=== PATIENT | male | born 1960 | race Two or more races ===

== ENCOUNTER 2020-09-10 21:00 | Emergency (ER) | payer OTHER ==
--- NOTE | 2020-09-11 00:27 | EDM.PDOC ---
ED HPI GENERAL MEDICAL PROBLEM - General Chief Complaint: Neurological Problem Stated Complaint: PATIENT COLLAPSED Time Seen by Provider: 09/10/20 22:32 Source of Information: Reports: Patient, Family History Limitations: Reports: No Limitations - History of Present Illness INITIAL COMMENTS - FREE TEXT/NARRATIVE: Regino Moses is a 60-year-old male who presents with his after having an episode of collapse and unresponsiveness associated with apnea. The patient and his were out for a walk in their neighborhood when the patient started to not feel well. He stopped and felt like he was going to have the aura of his migraine which causes paresthesias in his right fingertips right toes and face. The patient denied any nausea or vision changes except for the scintillating scotoma of migraine. He did not have any photophobia. He rested for a minute or 2 and started to feel better so he started to walk again and the states that he made a few steps and then again stopped putting his hands on his knees stating that he was not feeling well. Several minutes passed and he started to feel better and then started to walk again and this time he became unresponsive falling to the ground. The ran to get help but then decided to go back to them and on her return found him to be apneic so she started to give him [id number] respirations. After 2 or 3 breaths, the patient started to wake up. No chest compressions were performed. It is unclear whether he was pulseless at the time but likely did have a pulse. She called her son to bring the vehicle and they brought him to the emergency room for evaluation. Patient reportedly gets daily migraines. Although he had the aura today, he did not have any headache. He did have a migraine headache this morning. He typically treats his migraines with ibuprofen. He does have a past history significant for hypertension and a heart murmur. The family reports he had an echocardiogram back in 2003 but they are unsure what the echocardiogram showed. Denies any other past medical problems. 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 His works in town as a local dentist. - Related Data Allergies Allergy/AdvReac Type Severity Reaction Status Date / Time Penicillins Allergy Intermediate Rash Verified 09/10/20 22:31 Home Meds: Home Meds Ibuprofen [Motrin] 200 mg PO Q6H PRN 09/10/20 [History] Past Medical History HEENT History: Reports: Other (See Below) Other HEENT History: lasik eye surgery bilateral Neurological History: Reports: Migraines - Past Surgical History HEENT Surgical History: Reports: None, Tonsillectomy Social & Family History - Family History Family Medical History: No Pertinent Family History - Tobacco Use Tobacco Use Status *Q: Never Tobacco User - Caffeine Use Caffeine Use: Reports: None - Recreational Drug Use Recreational Drug Use: No ED ROS GENERAL - Review of Systems Review Of Systems: See Below Constitutional: Reports: No Symptoms HEENT: Reports: Vision Change (Scintillating scotoma associated with his migraine aura) Respiratory: Reports: Other (A period of apnea when he collapsed) Cardiovascular: Reports: Syncope (Without loss of bowel or bladder control), Other (Cardiac murmur history) Endocrine: Reports: No Symptoms GI/Abdominal: Reports: No Symptoms : Reports: No Symptoms Musculoskeletal: Reports: No Symptoms Skin: Reports: No Symptoms Neurological: Reports: Syncope Psychiatric: Reports: No Symptoms Hematologic/Lymphatic: Reports: No Symptoms Immunologic: Reports: No Symptoms - Physical Exam Exam: See Below Exam Limited By: No Limitations General Appearance: Alert, No Apparent Distress Eye Exam: Bilateral Eye: EOMI, PERRL Nose: Normal Inspection Throat/Mouth: Normal Inspection, Normal Oropharynx, Normal Voice, No Airway Compromise Head Exam: Atraumatic, Normocephalic Neck: Normal Inspection, Supple, Non-Tender, Full Range of Motion. No: Carotid Bruit (Unable to assess because of the grade 4/6 systolic ejection murmur heard in the right upper sternal border radiating to the carotids.), Lymphadenopathy (R), Lymphadenopathy (L) Respiratory/Chest: No Respiratory Distress, Lungs Clear, Normal Breath Sounds Cardiovascular: Regular Rate, Rhythm, Systolic Murmur (Grade 4/6 systolic ejection murmur), Other (Significant tardus and parvus with pulse in the radials bilaterally. Right radial artery is less intense than the left.) GI/Abdominal: Normal Bowel Sounds, Soft, Non-Tender Neuro Exam (Abbreviated): Alert, Oriented, CN II-XII Intact, Normal Cognition, No Motor/Sensory Deficits Back Exam: Normal Inspection, Full Range of Motion Extremities: Normal Inspection, Normal Range of Motion, Normal Capillary Refill Psychiatric: Normal Affect, Normal Mood Skin Exam: Warm, Dry, Intact, Normal Color #1 Interpretation EKG Date: 09/11/20 Time: 23:24 Rhythm: NSR Rate (Beats/Min): 53 [place]: Normal P-Wave: Present QRS: Normal ST-T: Normal QT: Normal Comparison: NA - No Prior EKG Course - Vital Signs Last Recorded V/S: Last Vital Signs Temp 36.2 C 09/10/20 22:43 Pulse 62 09/10/20 22:43 Resp 13 09/11/20 00:48 BP 121/66 09/11/20 00:48 Pulse Ox 97 09/11/20 00:48 - Orders/Labs/Meds Orders: Active Orders 24 hr Category Date Time Status EKG Documentation Completion [RC] ASDIRECTED Care 09/10/20 22:56 Active EKG 12 Lead [EK] Routine Ther 09/10/20 22:54 Ordered Labs: Laboratory Tests 09/10/20 09/10/20 Range/Units 22:54 23:00 WBC 10.2 (4.5-11.0) K/uL RBC 5.89 (4.30-5.90) M/uL Hgb 16.7 H (12.0-15.0) g/dL Hct 47.8 (40.0-54.0) % POC Hct 49 H (36-48) % MCV 81 (80-98) fL MCH 28 (27-31) pg MCHC 35 (32-36) % Plt Count 188 (150-400) K/uL Neut % (Auto) 78.5 H (36-66) % Lymph % (Auto) 14.3 L (24-44) % [place] % (Auto) 6.3 H (2-6) % Eos % (Auto) 0.8 L (2-4) % Baso % (Auto) 0.1 (0-1) % POC Capillary pH 7.45 H (7.31-7.41) POC Capillary pCO2 35.7 L (41.0-51.0) mmHg POC Capillary pO2 43 L* mmHg POC Capillary HCO3 24.6 (23.0-28.0) mmol/L POC Capill Base Excess 1 mmol/L POC Capillary O2 Sat 81 % POC Sodium 140 (140-148) mmol/L POC Potassium 3.9 (3.5-4.9) mmol/L POC Total CO2 26 (24-29) mmol/L POC WB Ioniz Calcium 1.15 (1.12-1.32) mmol/L POC Troponin I 0.08 (0.00-0.08) - Re-Assessments/Exams Free Text/Narrative Re-Assessment/Exam: 09/11/20 00:[address] patient underwent a CT of the head without contrast showing no acute abnormalities. Labs were obtained showing a CBC with a hemoglobin of 16.7, hematocrit of 47.8, leukocyte count of 10.2 with a normal differential, and platelet count of 188,000. His sodium was 140 with a potassium of 3.9. His troponin is negative. His venous blood gas shows a pH of 7.45, venous PCO2 of 35.7, venous PO2 of 43.7, and a bicarbonate of 24.6. Because the analyzer for chemistries is inoperable at this time we were unable to do other labs. I did perform a bedside echocardiogram for evaluation of the 4/6 systolic ejection murmur with syncope and apnea. The patient was placed in the left lateral decubitus position and we imaged the parasternal long axis, short axis, apical four-chamber and apical 2 chamber views. The patient has normal LV size and function with mild thickening of the LV wall measuring at 1.2 cm. The patient's LVID diastolic dimension is 5.35 cm. The patient's LVID systolic dimension is 2.7 cm. The left ventricular outflow tract diameter is 2.45 cm. The aortic valve excursion is 0.9 cm on M-mode. The mitral valve excursion is normal. Left ventricular ejection fraction is 65%. The right ventricular size and function are normal. Doppler assessment of the aortic valve shows a V-max of the LVOT at 0.95 m/s and the aortic V-max is 5.15 m/s giving a gradient of 86 mmHg across the aortic valve. The continuity equation was performed giving aortic valve area of 0.9 cm and corrected to an aortic valve area index based on the patient's BMI of 0.4 cm/m both indicating severe aortic stenosis. His EKG showed sinus bradycardia but no evidence for any ST elevation or d epression. No LVH by voltage criteria. The patient no longer has a primary care provider at [facility] so I discussed the case with Dr. Arceo from cardiology at [facility]. I did cl inical message her as well about trying to get the patient an appointment with cardiology in a timely fashion for a formal echocardiogram should they deem it necessary and further evaluation for probable aortic valve replacement. Given his history of traveling here from [facility], I am concerned about rheumatic valve disease as the cause for his aortic stenosis as the valve appears to be heavily calcified on the echocardiogram. Information was given to the family to be able to contact cardiology at [facility] to arrange a follow-up appointment. 09/11/20 01:53 at this time, the patient remained stable and is suitable for discharge home in satisfactory condition. Indications to return to the ED were discussed with the patient and family. All questions were answered. Departure - Departure Time of Disposition: 01:46 Disposition: Home, Self-Care 01 Clinical Impression: Syncope and collapse, Aortic stenosis, severe - Discharge Information Instructions: Aortic Valve Stenosis, Syncope Referrals: PCP,None [Primary Care Provider] - Forms: ED Department Discharge Care Plan Goals: I would like you to follow-up with cardiology at [facility]. To schedule an appointment with them please call [phone]. You may want to contact the [facility] clinic to get an appointment with Dr. Vaibhav Laguna who you have seen in the past. This should be as soon as possible so that he could arrange for either a teleconference with cardiology or a referral. Please return to the ED should you have any recurrence of symptoms including shortness of breath, chest pain, lightheadedness, or near syncope/syncope. Sepsis Event Note (ED) - Evaluation Sepsis Screening Result: No Definite Risk - Focused Exam Vital Signs: Vital Signs Temp Pulse Resp BP Pulse Ox 09/11/20 00:48 13 121/66 97 09/10/20 23:54 14 121/73 95 09/10/20 23:24 20 105/64 96 09/10/20 22:54 16 99/63 95 09/10/20 22:43 36.2 C 62 12 125/71 96 09/10/20 22:28 62 12 125/71 96 09/10/20 21:59 36.2 C 59 L 10 L 114/69 97 - Problem List & Annotations (1) Aortic stenosis, severe SNOMED Code(s): 007773636 Code(s): I35.0 - NONRHEUMATIC AORTIC (VALVE) STENOSIS Status: Acute Priority: High Current Visit: Yes (2) Syncope and collapse SNOMED Code(s): 405149055 Code(s): R55 - SYNCOPE AND COLLAPSE Status: Acute Priority: High Current Visit: Yes - Problem List Review Problem List Initiated/Reviewed/Updated: Yes - My Orders Last 24 Hours: My Active Orders 09/10/20 22:54 EKG 12 Lead [EK] Routine 09/10/20 22:56 EKG Documentation Completion [RC] ASDIRECTED - Assessment/Plan Last 24 Hours: My Active Orders 09/10/20 22:54 EKG 12 Lead [EK] Routine 09/10/20 22:56 EKG Documentation Completion [RC] ASDIRECTED
--- NOTE | 2020-09-11 00:27 | CRLCT ---
CT HEAD DATE: 09/10/2020 CLINICAL HISTORY: Patient with syncope and migraine. TECHNIQUE: Standard CT scanning of the head was performed. COMPARISON: None. FINDINGS: There is no intracranial hemorrhage. There is no territorial infarction. There are mild microangiopathic changes. There is diffuse parenchymal volume loss. There is no mass effect or midline shift. The calvarium is unremarkable. The orbits are unremarkable. The paranasal sinuses are unremarkable. The mastoid air cells are unremarkable. The soft tissues are unremarkable. IMPRESSION: 1. No intracranial hemorrhage or territorial infarction. 2. Mild microangiopathic changes and diffuse parenchymal volume loss. Please note that all CT scans at this facility use dose modulation, iterative reconstruction, and/or weight-based dosing when appropriate to reduce radiation dose to as low as reasonably achievable. Dictated by: Francisco Mackay MD @ 09/11/2020 00:25:22 (Electronically Signed)
== END 2020-09-11 01:55 | disposition home or self-care (01) ==
LOC: JP.ED 21:00
DX: R55 Syncope and collapse (principal); I35.0 Nonrheumatic aortic (valve) stenosis; Z88.0 Allergy status to penicillin
CPT/HCPCS: 36415; 70450; 82330; 82803; 84132; 84295; 84484; 85014; 85025; 93005; 93010; 99285; 99285-25

== ENCOUNTER 2020-09-13 13:17 | Emergency (ER) | payer OTHER ==
--- NOTE | 2020-09-13 13:45 | EDM.PDOC ---
ED HPI GENERAL MEDICAL PROBLEM - General Chief Complaint: General Stated Complaint: SOB, DIFFICULTY BREATHING Time Seen by Provider: 09/13/20 13:45 Source of Information: Reports: Patient, Family History Limitations: Reports: No Limitations - History of Present Illness INITIAL COMMENTS - FREE TEXT/NARRATIVE: Syncope and near syncope over the past several days. He was seen in the emergency room 2 days ago and a bedside echocardiogram showed normal ejection fraction but critical aortic stenosis along with venous hypoxemia. He does have a cardiology appointment on the sixth, but he can barely get up from a sitting position without getting lightheaded and short of breath and it is scaring his family so they want him seen sooner. Here in the emergency room he is comfortab le on the exam bed, no shortness of breath, O2 saturations 98% and blood pressure is normal. Denies cough, denies peripheral edema Onset: Gradual Duration: Day(s): (Symptoms are much worse over the last several days) Associated Symptoms: Reports: Headaches (Chronic migraine headaches) - Related Data Allergies Allergy/AdvReac Type Severity Reaction Status Date / Time Penicillins Allergy Intermediate Rash Verified 09/13/20 13:40 Home Meds: Home Meds Ibuprofen [Motrin] 200 mg PO Q6H PRN 09/10/20 [History] Past Medical History HEENT History: Reports: Other (See Below) Other HEENT History: lasik eye surgery bilateral Cardiovascular History: Reports: Heart Murmur, Syncope, Other (See Below) Other Cardiovascular History: Valve stenosis Neurological History: Reports: Migraines - Past Surgical History HEENT Surgical History: Reports: None, Tonsillectomy Social & Family History - Family History Family Medical History: No Pertinent Family History - Caffeine Use Caffeine Use: Reports: None ED ROS GENERAL - Review of Systems Review Of Systems: See Below Constitutional: Denies: Fever, Chills, Malaise HEENT: Denies: Vision Change Respiratory: Denies: Shortness of Breath Cardiovascular: Reports: Lightheadedness. Denies: Chest Pain GI/Abdominal: Denies: Nausea, Vomiting Skin: Reports: Diaphoresis Neurological: Reports: Dizziness, Headache (Chronic almost daily migraines) Psychiatric: Reports: No Symptoms ED EXAM, GENERAL - Physical Exam Exam: See Below Exam Limited By: No Limitations General Appearance: Alert, No Apparent Distress Eye Exam: Bilateral Eye: Normal Inspection Head: Atraumatic Neck: Supple, Non-Tender Respiratory/Chest: Lungs Clear Cardiovascular: Regular Rate, Rhythm, Systolic Murmur (Significant systolic ejection murmur) GI/Abdominal: Soft, Non-Tender Extremities: Normal Inspection. No: Pedal Edema Neurological: Alert, Oriented, No Motor/Sensory Deficits Psychiatric: Normal Affect, Normal Mood Skin Exam: Warm, Dry #1 Interpretation EKG Date: 09/13/20 Rhythm: NSR EKG Interpretation Comments: No change from EKG 3 days ago. Course - Vital Signs Last Recorded V/S: Last Vital Signs Temp 98 F 09/13/20 13:47 Pulse 53 L 09/13/20 14:00 Resp 13 09/13/20 14:48 BP 129/67 09/13/20 14:48 Pulse Ox 97 09/13/20 14:48 - Orders/Labs/Meds Orders: Active Orders 24 hr Category Date Time Status Chest 2V [CR] Routine Exams 09/13/20 13:58 Taken EKG 12 Lead [EK] Routine Ther 09/13/20 13:58 Ordered Labs: Laboratory Tests 09/13/20 09/13/20 09/13/20 Range/Units 14:24 14:24 14:24 WBC 5.4 (4.5-11.0) K/uL RBC 5.89 (4.30-5.90) M/uL Hgb 16.8 H (12.0-15.0) g/dL Hct 47.2 (40.0-54.0) % MCV 80 (80-98) fL MCH 29 (27-31) pg MCHC 36 (32-36) % Plt Count 184 (150-400) K/uL Neut % (Auto) 51.7 (36-66) % Lymph % (Auto) 35.3 (24-44) % [place] % (Auto) 9.6 H (2-6) % Eos % (Auto) 2.8 (2-4) % Baso % (Auto) 0.6 (0-1) % Puncture Site Lt radial ABG pH 7.458 H (7.350-7.450) ABG pCO2 33.5 L (35.0-42.0) mmHg ABG pO2 83.7 (75.0-100.0) mmHg ABG HCO3 23.4 (22.0-26.0) mmol/L ABG Total CO2 19.4 L (23.0-27.0) mmol/L ABG O2 Saturation 96.7 (95.0-98.0) % ABG O2 Content 23.2 H (15.0-23.0) %vol ABG Base Excess 0.8 mm/L ABG Hemoglobin 17.3 (13.5-18.0) g/dL ABG Oxyhemoglobin 95.2 % ABG Carboxyhemoglobin 0.9 (0.0-1.6) % ABG Methemoglobin 0.6 % Hal Test Passed O2 Delivery Device Room air Sodium 140 (140-148) mmol/L Potassium 4.0 (3.6-5.2) mmol/L Chloride 104 (100-108) mmol/L Carbon Dioxide 25 (21-32) mmol/L Anion Gap 10.6 (5.0-14.0) mmol/L BUN 16 (7-18) mg/dL Creatinine 1.1 (0.8-1.3) mg/dL Est Cr Clr Drug Dosing 77.96 mL/min Estimated GFR (MDRD) > 60 (>60) Glucose 92 (74-106) mg/dL Calcium 8.6 (8.5-10.1) mg/dL Total Bilirubin 1.2 H (0.2-1.0) mg/dL AST 20 (15-37) U/L ALT 39 (12-78) U/L Alkaline Phosphatase 85 (46-116) U/L Troponin I < 0.017 (0.000-0.056) ng/mL Total Protein 6.3 L (6.4-8.2) g/dL Albumin 3.7 (3.4-5.0) g/dL Globulin 2.6 (2.3-3.5) g/dL Albumin/Globulin Ratio 1.4 (1.2-2.2) - Re-Assessments/Exams Free Text/Narrative Re-Assessment/Exam: 09/13/20 16:31 CBC, CMP and troponin were obtained, all reassuring. ABGs also obtained which shows normal oxygenation. pH is slightly elevated, CO2 slightly decreased indicating recent hyperventilation. There is no need for transfer at this time but we were able to get his echocardiogram scheduled for tomorrow morning, patient will return tomorrow morning for the procedure. He will will avoid any bending or strenuous activity tonight. Departure - Departure Time of Disposition: 16:03 Disposition: Home, Self-Care 01 Clinical Impression: Near syncope - Discharge Information Instructions: Near-Syncope, [id number] Referrals: PCP,None [Primary Care Provider] - Forms: ED Department Discharge Care Plan Goals: Return tomorrow for your echocardiogram as discussed. Avoid strenuous activity this evening. Sepsis Event Note (ED) - Focused Exam Vital Signs: Vital Signs Temp Pulse Resp BP Pulse Ox 09/13/20 14:48 13 129/67 97 09/13/20 14:00 53 L 115/71 09/13/20 13:47 98 F 54 L 11 L 126/82 98 09/13/20 13:43 98 F 54 L 11 L 126/82 98 - My Orders Last 24 Hours: My Active Orders 09/13/20 13:58 Chest 2V [CR] Routine EKG 12 Lead [EK] Routine - Assessment/Plan Last 24 Hours: My Active Orders 09/13/20 13:58 Chest 2V [CR] Routine EKG 12 Lead [EK] Routine
--- NOTE | 2020-09-14 09:36 | CR ---
CHEST: 2 view CLINICAL HISTORY:Dyspnea COMPARISON:None FINDINGS: The heart size, pulmonary vascularity and hilar structures are normal. No infiltrate effusion or pneumothorax is seen. IMPRESSION: No acute cardiopulmonary process.
== END 2020-09-13 16:04 | disposition home or self-care (01) ==
LOC: JP.ED 13:17
DX: R55 Syncope and collapse (principal); Z88.0 Allergy status to penicillin
CPT/HCPCS: 36415; 36600; 71046; 71046-26; 80053; 82803; 84484; 85025; 93005; 93010; 99284; 99284-25

== ENCOUNTER 2025-03-13 17:37 | Inpatient (IN) | payer OTHER ==
[2025-03-13 19:02] LABS: BASOPHILS ABSOLUTE AUTO 0.04 K/uL (0.00-0.10); BASOPHILS PERCENT AUTO 0.4 % (0.1-1.3); EOSINOPHILS ABSOLUTE AUTO 0.03 K/uL (0.00-0.40); EOSINOPHILS PERCENT AUTO 0.3 % (0.0-5.4); IMMATURE GRAN ABSOLUTE AUTO 0.04 K/uL (0.00-0.23); IMMATURE GRAN PERCENT AUTO 0.4 % (0.0-0.7); LYMPHOCYTES ABSOLUTE AUTO 1.60 K/uL (0.8-3.3); LYMPHOCYTES PERCENT AUTO 15.5 % (11.4-47.7); MONOCYTES ABSOLUTE AUTO 1.09 K/uL (0.20-0.90); MONOCYTES PERCENT AUTO 10.6 % (3.3-12.6); NEUTROPHILS ABSOLUTE AUTO 7.49 K/uL (1.0-7.6); NEUTROPHILS PERCENT AUTO 72.8 % (40.0-78.1); PLATELET COUNT,PLT 270 K/uL (130-375); RED BLOOD CELL COUNT 5.86 M/uL (4.14-5.76); WHITE BLOOD CELL COUNT,WBC 10.3 K/uL (3.2-11.0)
[2025-03-13 19:19] LABS: INR 1.6
[2025-03-13 19:24] LABS: A/G RATIO 0.8 (1.2-2.2); ALANINE AMINOTRANSFERASE,ALT 66 U/L (12-78); ASPARTATE AMNIOTRANSFERASE,AST 48 U/L (15-37); BILIRUBIN TOTAL 1.1 mg/dL (0.2-1.0); BLOOD UREA NITROGEN,BUN 16 mg/dL (7-18); CARBON DIOXIDE,CO2 25 mmol/L (21-32); CHLORIDE,CL 100 mmol/L (100-108); CREATININE 0.9 mg/dL (0.8-1.3); EST CRCL DRUG DOSING (CG) 67.41 mL/min; ESTIMATED GFR 97 mL/min (>60); GLUCOSE RANDOM 116 mg/dL (74-106); POTASSIUM,K 3.9 mmol/L (3.6-5.2); PROTEIN TOTAL,TP 6.7 g/dL (6.4-8.2); SODIUM,NA 135 mmol/L (140-148)
[2025-03-13] MEDS: Ondansetron 4 MG/2 ML SDV IVPUSH ONE (19:37)
[2025-03-13] MEDS: Iopamidol 755 Mg/ML 100 ML Bottle IV SCH (20:09)
[2025-03-13 20:47] LABS: APPEARANCE,URINE CLEAR (CLEAR); GLUCOSE,URINE NEGATIVE (NEGATIVE); OCCULT BLOOD,URINE TRACE-INTACT (NEGATIVE)
[2025-03-13 21:02] LABS: SQUAMOUS EPITHELIAL CELLS,UR NOT SEEN /HPF; UROTHELIAL CELLS,URINE NOT SEEN /HPF
[2025-03-13] MEDS ORDERED: Sennosides/Docusate Sodium 50-8.6 MG Tab PO PRN (23:37)
[2025-03-13] MEDS ORDERED: Ondansetron 4 MG Tab.DIS PO PRN (23:37)
[2025-03-13] MEDS ORDERED: Ondansetron 4 MG/2 ML SDV IV PRN (23:37)
[2025-03-14 05:40] LABS: PLATELET COUNT,PLT 251.0 K/uL (130-375); RED BLOOD CELL COUNT 5.56 M/uL (4.14-5.76); WHITE BLOOD CELL COUNT,WBC 9.9 K/uL (3.2-11.0)
[2025-03-14 05:56] LABS: INR 1.6
[2025-03-14 06:02] LABS: BLOOD UREA NITROGEN,BUN 13.0 mg/dL (7-18); CARBON DIOXIDE,CO2 28.0 mmol/L (21-32); CHLORIDE,CL 102.0 mmol/L (100-108); CREATININE 1.0 mg/dL (0.8-1.3); EST CRCL DRUG DOSING (CG) 81.58 mL/min; ESTIMATED GFR 85.0 mL/min (>60); GLUCOSE RANDOM 97.0 mg/dL (74-106); POTASSIUM,K 4.4 mmol/L (3.6-5.2); SODIUM,NA 137.0 mmol/L (140-148)
[2025-03-15 05:44] LABS: PLATELET COUNT,PLT 275.0 K/uL (130-375); RED BLOOD CELL COUNT 5.39 M/uL (4.14-5.76); WHITE BLOOD CELL COUNT,WBC 9.5 K/uL (3.2-11.0)
[2025-03-15 06:09] LABS: INR 4.3
== END 2025-03-15 11:05 | disposition home or self-care (01) | DRG 316 ==
LOC: JP.ED 17:37 → JP.MS 22:19 → OBSVTOIN 03-15 10:00
PROVIDERS: ADMIT Registered Nurse; ATTEND Internal Medicine
DX: T82.897A Other specified complication of cardiac prosthetic devices, implants and grafts, initial encounter (principal); Y71.2 Prosthetic and other implants, materials and accessory cardiovascular devices associated with adverse incidents; D73.5 Infarction of spleen; G43.909 Migraine, unspecified, not intractable, without status migrainosus; I10 Essential (primary) hypertension; Z95.2 Presence of prosthetic heart valve; Z88.0 Allergy status to penicillin; Z90.89 Acquired absence of other organs
CPT/HCPCS: 36415; 74174; 80048; 80053; 81001; 83605; 85025; 85027; 85610; 86140; 96361; 96372; 96374; 96376; 99223; 99232; 99238; 99285; 99285-25; A9270-GY; G0378; J1171; J1650; J7030; Q9967